=== PATIENT | male | born 1945 | race Caucasian/White ===

== ENCOUNTER → 2021-07-15 | Outpatient (CLI) | payer BC, OTHER | LOC: SJCVCIMAG 15:53 → SJCVC 15:53 | PROVIDERS: ATTEND Internal Medicine Cardiovascular Disease | DX: I08.8 Other rheumatic multiple valve diseases (principal); I42.9 Cardiomyopathy, unspecified; Z79.899 Other long term (current) drug therapy ==

== ENCOUNTER → 2021-07-19 | Outpatient (CLI) | payer BC, OTHER ==
[~2021-07-19] VITALS: Ht 170.2 cm; Wt 66.0 kg
[~2021-07-19] MED LIST: COZAAR 25 MG TA25 M1; FLOMAX0.4 MG; TOPROL XL25 MG; VIAGRA50 MG
[2021-07-19 08:33] LABS: HEMATOCRIT 43.3 % (42.0-52.0); HEMOGLOBIN 14.2 gm/dL (14.0-18.0); MCHC 32.9 g/dL (28.0-37.0); MCV 97.2 fL (80.0-100.0); RBC 4.45 mil/uL (4.50-6.00); RDW 13.8 % (10.5-14.5)
[2021-07-19 08:38] VITALS: BP 97/58
[2021-07-19 08:41] LABS: CALCIUM 8.5 mg/dL (8.5-10.1); POTASSIUM 3.6 mmol/L (3.5-5.1)
--- NOTE | 2021-07-19 17:32 | CATHLAB ---
"[facility] [address] e|[place] [address] INVASIVE PROCEDURE REPORT Name: NESSA QURESHI Room #: REG COREY CarlsonFadiKatheFadi#: [id number] Admission: 07/19/21 Attend Phys: Aguilar Hu MD, Discharge: Date of : 47 Report #: [id number] THIS REPORT FOR: cc: Cory Boateng MD, Michael D. MD Mancuso, Gerald M. MD [facility] ~ APPROVED REPORT Study performed: 07/19/2021 09:33:01 Patient Details Patient Status: Out-Patient Room #: The patient is a 76 year-old male Event Personnel Aguilar Hu Control Systems Engineer, Cely Bunn RN RN, Dominique Black RTR ScrubPablo Nancy RTR, STRATEGIC PLANNER Monitor Procedures Performed Art Access - R femoral artery* Juanjo Access - R femoral vein Right and Left Heart Cath w/or w/o Coronarie [id number] [facility] Aortogram Abdominal Peripheral Angio 822228 Hemostasis w/ Mynx 47161 Initial Mod Sed Same Phys/QHP Gr5y [id number] 85951 Mod Sed Same Phys/QHP Ea 168387 Hemostasis with Manual pressure Indication Dyspnea, Positive stress test Procedure Narrative The Right Groin^ was infiltrated with 1% Lidocaine subcutaneous anesthesia. A PINNACLE 6FR Sheath #[id number] sheath was inserted into the RFA. Coronary angiography was performed using coronary diagnostic catheters. The right coronary system was accessed and visualized with a JR4 catheter. The left coronary system was accessed and visualized with a 6FR JL 3.5 #[id number] catheter. The left ventricle was accessed and visualized with a PIGTAIL catheter. Left ventriculogram was performed in 30 degree projection. An aortogram of the abdominal aorta was performed. Pre-demployment femoral angiogram was performed . Closure device was deployed with a 6 Fr MYNXGRIP 6/7F #[id number]. Hemostasis was obtained with manual pressure following sheath removal without any complications. The patient tolerated the procedure well and there were no complications associated with the procedure. There was no hematoma. [facility] [address] [place] [address] INVASIVE PROCEDURE REPORT Name: TITUSNESSA Room #: SHIRLEY Benson#: [id number] Admission: 07/19/21 Attend Phys: Aguilar Hu, Discharge: Date of : 47 Report #: [id number] Intraoperative Conscious Sedation Sedation start time: 10:18 Case end Time: 11:04 Fentanyl 50 mcg Versed 1 mg Fluoro Time: 4.90 minutes Dose: DAP 3705.00 cGycm2 407 mGy Contrast Type and Amount: Omnipaque 110 ml Hemodynamics The right atrial mean pressure is 11 mmHg. The right ventricular pressure is 42/8 mmHg. The pulmonary artery pressure is 43/19 mmHg with a mean of 29 mmHg. The mean pulmonary capillary wedge pressure is 22 mmHg. The aortic pressure is 93/57 mmHg with a mean of 71 mmHg. The left ventricular pressure is 102/12 mmHg with a mean of mmHg. The left ventricular end diastolic pressure is 30 mmHg. The cardiac output using thermo method is 3.20 L/min. The cardiac index using thermo method is 1.82 L/min/m2. Conclusion #1 Successful right heart catheterization with cardiac output by thermodilution. See above hemodynamics. #2 left ventriculogram reveals moderate left ventricular dilatation and severe global hypokinesis EF 20% range. #3 abdominal aortogram shows mild aortic ectasia and no aneurysm. Slow pulsatile flow. #4 left main Long a 30% ostial lesion giving rise to LAD and circumflex otherwise widely patent. #5 the LAD extends to the apex with minimal irregularity. Moderate size diagonal system also widely patent. #6 circumflex nondominant but moderate distribution widely patent. #7 right coronary artery is dominant but there is small PDA MARCOS system so physiologically anatomically codominant. No occlusive disease. Recommendations and plan: Continue aggressive risk factor modification. Continue afterload reduction and diuresis. Patient is hemodynamically stable transfer CV holding for probable discharge protocol. <ELECTRONICALLY SIGNED> By: Aguilar Hu MD, FACC 07/19/211730 30 30 Aguilar Hu MD, FACC /INF"
== END | disposition home or self-care (01) ==
LOC: CATH 06:19
PROVIDERS: ATTEND Internal Medicine Cardiovascular Disease
DX: R94.39 Abnormal result of other cardiovascular function study (principal); I25.10 Atherosclerotic heart disease of native coronary artery without angina pectoris; I77.811 Abdominal aortic ectasia; I42.9 Cardiomyopathy, unspecified; R06.00 Dyspnea, unspecified; M19.90 Unspecified osteoarthritis, unspecified site; Z98.890 Other specified postprocedural states; Z79.899 Other long term (current) drug therapy